=== PATIENT | male | born 1945 | race Caucasian/White ===

== ENCOUNTER 2019-05-18 15:05 | Outpatient (CLI) | payer MEDICARE, OTHER, SELFPAY ==
--- NOTE | ~2019-05-18 | XR_ITS ---
XR lumbar spine 2-3V 05/18/2019 15:35 Indication: Low back pain. Arthritis. Procedure: 2 views lumbar spine Comparison: 09/30/2017 Findings: Vertebral bodies are maintained. No acute fracture or traumatic malalignment. There is mode rate mid and lower lumbar facet hypertrophy. There is significant loss of disc height at L5-S1 with v acuum phenomenon. There is atherosclerosis. Pedicles intact. There is atherosclerosis. Impression: 1: Moderate lumbar spondylosis without significant interval change. Reviewed, dictated and finalized at location B. [employer]ATION [employer]ENT Impression: 1: Moderate lumbar spondylosis without significant interval change.
== END 2019-05-18 15:06 | disposition home or self-care (01) ==
LOC: ANHIMG 15:13
PROVIDERS: PCP Physician Assistant; Visit Provider Physician Assistant
DX: M47.896 Other spondylosis, lumbar region (principal)
CPT/HCPCS: 72100

== ENCOUNTER 2019-08-02 11:46 | Outpatient (CLI) | payer MEDICARE, OTHER, SELFPAY ==
--- NOTE | ~2019-08-02 | XR_ITS ---
EXAMINATION: XR shoulder LT min 2V INDICATION: Left shoulder pain TECHNIQUE: Four views of the left shoulder are submitted. COMPARISON: None FINDINGS: Normal alignment. No fracture. There is mild osteoarthritis in the glenohumeral and acromio clavicular joints. Soft tissues are unremarkable. IMPRESSION: Mild osteoarthritis without acute abnormality. Reviewed, dictated and finalized at location A.
== END 2019-08-02 11:47 | disposition home or self-care (01) ==
LOC: ANHIMG 11:53
PROVIDERS: PCP Physician Assistant; Visit Provider Physician Assistant
DX: M19.012 Primary osteoarthritis, left shoulder (principal)
CPT/HCPCS: 73030

== ENCOUNTER 2021-08-27 07:42 | Outpatient (CLI) | payer MEDICARE, OTHER, SELFPAY ==
--- NOTE | 2021-09-18 14:44 | WPDSLEEPSTUD ---
Sleep Study Date of Study: 08/27/21 Ordering Provider: Mayank Enamorado MD Interpreting Physician: Rabia Brooks DO Sleep Study Type: Split Polysomnogram Height: 1.75 m Weight: 83.915 kg Body Mass Index: 27.3 Neck Circumference (inches): 17.5 [place]: 3 Reason for Sleep Study Loud snoring Sleep History The patient is a 76-year-old male with atrial fibrillation, hypertension and history of tobacco use that had a sleep study ordered by his travel money advisor for evaluation of sleep apnea. The patient frequently snores loud enough that others complain. He denies having trouble sleeping when he has a cold. He denies waking up gasping for air throughout the night. He denies having breathing problems at night observed by himself or others. He denies sweating excessively at night. He denies having heart palpitations or irregular heartbeats during the night. He occasionally falls asleep during the day but never while driving. he denies sleep paralysis, cataplexy and hypnagogic / hypnopompic hallucinations. He denies having trouble at school or work due to sleepiness. He occasionally remembers his dreams. He rarely has thoughts racing through his mind. He rarely feels sad or depressed. He denies having anxiety. He denies noticing parts of his body jerk. He denies kicking during the night. He denies having crawling and aching feelings in his legs as well as leg pain during the night. He denies grinding his teeth during sleep awakening with morning jaw pain. He is frequently bothered by pain during the day but never awakened by pain during the night. He occasionally wakes up feeling stiff in the morning. He occasionally wakes up with sore or achy muscles. He denies waking up with pain in the neck, spine and other joints. He goes to bed between 830-930 a.m. on weekdays and between 930 to 10:00 a.m. on the weekends. It takes him 20 minutes to fall asleep. He is unsure how many times he wakes up per night and does not have a set wake-up time. He typically gets 6-8 hours of sleep per night. He currently lives with his . He does not consume any caffeinated beverages within 2 hours of bedtime. He does not engage in physical exercise before bedtime. He denies reading or watching television before falling asleep. He denies taking naps in the afternoon or the evening. He drinks 2 caffeinated beverages per day. He quit smoking in 1974. He denies alcohol and recreational drug use. [facility] Past Medical History Medical History Atrial fibrillation, chronic Hypertension Family History Family History Father Nicotine dependence Sibling Hypertension Social History Social History Smoking packs per day: 1 Smoking cigarettes per day: 20.0 Years smoked: 15 Smoking pack-years: 15.00 Smoking status: Former smoker Tobacco type: cigarettes and pipe Second hand tobacco smoke exposure: Yes Smoking end date: 03/14/74 Alcohol intake: current Alcohol use details: Socially Medications Home Medications Medication Instructions Recorded Confirmed Type amitriptyline 50 mg tablet 50 mg PO QHS 08/05/21 History cetirizine 10 mg tablet 10 mg PO DAILY PRN 08/05/21 History famotidine 40 mg tablet 40 mg PO DAILY 08/05/21 History lisinopril 5 mg tablet 5 mg PO DAILY 08/05/21 History memantine 10 mg tablet 10 mg PO BID 08/05/21 History metoprolol succinate 50 mg 50 mg PO BID 08/05/21 History tablet,extended release 24 hr rivaroxaban 20 mg tablet 20 mg PO DAILY 08/05/21 History simvastatin 20 mg tablet 20 mg PO DAILY 08/05/21 History tramadol 50 mg tablet 50 mg PO BID PRN 08/05/21 History Sleep Procedure This test was performed using the [employer] multiple channel system including EOG, EEG, submental EMG, EKG, nasal and oral a
[2021-09-22 15:51] VITALS: BMI 27.3
== END 2021-08-28 05:09 | disposition home or self-care (01) ==
LOC: ANHCSM 07:42
PROVIDERS: PCP Physician Assistant; Visit Provider Internal Medicine Pulmonary Disease
DX: G47.33 Obstructive sleep apnea (adult) (pediatric) (principal); G47.10 Hypersomnia, unspecified; I48.20 Chronic atrial fibrillation, unspecified; I10 Essential (primary) hypertension; Z87.891 Personal history of nicotine dependence
CPT/HCPCS: 95810; 95811

== ENCOUNTER 2021-11-24 17:52 | Emergency (ER) | payer MEDICARE, OTHER, SELFPAY ==
--- NOTE | ~2021-11-24 | XR_ITS ---
EXAM: XR knee RT min 4V DATE: 11/24/2021 18:33 HISTORY: Pain on Outside of knee LATERAL SIDE SINCE LASTNIGHT, NKI . COMPARISON: 05/05/2018. FINDINGS: Decreased mineralization. No acute fracture or dislocation. Tiny old avulsion fracture off the fibular head versus dystrophic calcification. No lytic or blastic lesion. Mild tricompartmental osteoarthritis. No erosion or periosteal change. Soft tissues within normal limits. Small knee joint effusion. IMPRESSION: No acute osseous finding in the right knee. Reviewed, dictated and finalized at location K.
[2021-11-24 18:01] VITALS: BP 115/86; PULSE 96; RESP 18; TEMP 36.5; O2SAT 99
--- NOTE | 2021-11-24 18:05 | PC.NURSE ---
patient's phone number # [phone]
--- NOTE | 2021-11-24 19:41 | PC.NURSE ---
patient complains of left knee pain that began last night at 2300. denies injury.
--- NOTE | 2021-11-24 20:16 | ED.LOWEXIN ---
HPI - Extremity Injury (Lower) General Chief Complaint: Extremity Injury, Lower Stated Complaint: right leg pain Time Seen by Provider: 11/24/21 19:56 History of Present Illness HPI Narrative: This is a 76-year-old male with past medical history of A. fib on Xarelto, who presents emergency department complaining of right knee pain. He states pain began yesterday while walking, is described as sharp, initially 4/10, now 1/10, isolated to the lateral side of the knee, aggravated by some movements but not all and does not radiate. He denies falls, trauma of the knee, swelling, fevers or chills. Related Data Home Medications Medication Instructions Recorded Confirmed amitriptyline 50 mg tablet 50 mg PO QHS 08/05/21 cetirizine 10 mg tablet 10 mg PO DAILY PRN 08/05/21 famotidine 40 mg tablet 40 mg PO DAILY 08/05/21 lisinopril 5 mg tablet 5 mg PO DAILY 08/05/21 memantine 10 mg tablet 10 mg PO BID 08/05/21 metoprolol succinate 50 mg 50 mg PO BID 08/05/21 tablet,extended release 24 hr rivaroxaban 20 mg tablet 20 mg PO DAILY 08/05/21 simvastatin 20 mg tablet 20 mg PO DAILY 08/05/21 tramadol 50 mg tablet 50 mg PO BID PRN 08/05/21 Allergies Allergy/AdvReac Type Severity Reaction Status Date / Time No Known Allergies Allergy Unknown Unverified 11/24/21 20:02 Review of Systems Review of Systems: CONSTITUTIONAL: Denies fever, chills, or sweats. CARDIOVASCULAR: Denies chest pain, palpitations, or edema. RESPIRATORY: Denies cough or dyspnea. GASTROINTESTINAL: Denies abdominal pain, nausea, vomiting, or diarrhea. GENITOURINARY: Denies dysuria or hematuria. SKIN: Denies rash or itching. MUSCULOSKELETAL: joint pain Denies back pain, or myalgia. NEUROLOGIC: Denies headache, numbness, dizziness, or weakness. PSYCHIATRIC: Denies anxiety or depression. [facility] Past Medical History Medical History Atrial fibrillation, chronic Hypertension Family History Family History Father Nicotine dependence Sibling Hypertension Social History Social History Smoking packs per day: 1 Smoking cigarettes per day: 20.0 Years smoked: 15 Smoking pack-years: 15.00 Smoking status: Former smoker Tobacco type: cigarettes and pipe Second hand tobacco smoke exposure: Yes Smoking end date: 03/14/74 Alcohol intake: current Alcohol use details: Socially Exam Narrative: GENERAL: Well-developed, well-nourished, and in no acute distress. HEAD: Normocephalic, atraumatic. EYES: PERRLA and EOMI. ENT: Nares clear, no rhinorrhea or epistaxis. Mucous membranes moist. Oropharynx without tonsillar hypertrophy exudate or other lesions. CHEST: Clear to auscultation. No respiratory distress. No wheezes rales or rhonchi HEART: Regular rate and rhythm. No murmur heard. Normal peripheral pulses. ABDOMEN: Soft, nontender, nondistended, normal active bowel sounds. EXTREMITIES: No deformity, rash, swelling or ecchymosis noted of either knee, normal range of motion of the knees with small amount of tenderness on flexion to approximately 100 degrees, anterior and posterior drawer test negative, no joint laxity noted, no edema. SKIN: Warm, dry, no rash. NEURO: No focal deficits. Alert and oriented x3. PSYCH: Normal mood and affect. Course Course Emergency Course: 20:15 -x-ray negative for fracture or dislocation. Small effusion noted on imaging not immediately obvious on examination. At this time I do not suspect significant ligament injury. Discussed findings the patient and recommendations for RICE as well as lidocaine patches and pain control. Discussed return emergency precautions including signs/symptoms of septic arthritis. The patient voiced understanding is comfortable with the plan. All questions answered to his satisfaction. Vital Signs Vital signs: Stacie
== END 2021-11-24 20:40 | disposition home or self-care (01) ==
PROVIDERS: Emergency Provider Preventive Medicine Aerospace Medicine; PCP Physician Assistant
DX: S86.911A Strain of unspecified muscle(s) and tendon(s) at lower leg level, right leg, initial encounter (principal); X58.XXXA Exposure to other specified factors, initial encounter; I48.20 Chronic atrial fibrillation, unspecified; I10 Essential (primary) hypertension; Z79.01 Long term (current) use of anticoagulants; Z87.891 Personal history of nicotine dependence
CPT/HCPCS: 73564; 99283

== ENCOUNTER 2022-06-10 12:36 | Outpatient (CLI) | payer MEDICARE, OTHER, SELFPAY ==
--- NOTE | ~2022-06-10 | XR_ITS ---
XR knee RT 3V DATE: 06/10/2022 13:05 INDICATION: Generalized right knee pain for 3 years TECHNIQUE: AP, lateral, sunrise views COMPARISON: 11/24/2021 right knee FINDINGS: Mild superior pole patellar enthesopathy at the quadriceps tendon insertion. There is slight periarticular spurring of the patella. Medial and lateral compartment joint spaces ar e well preserved. Small chronic calcification adjacent to the lateral aspect of the head of the fibula. No fracture or dislocation or joint effusion. No radiopaque intra-articular loose body or, calcinosis . No periosteal reaction or bone destruction. IMPRESSION: Minimal patellofemoral osteoarthritis Reviewed, dictated and finalized at location L.
--- NOTE | ~2022-06-10 | XR_ITS ---
XR knee LT 3V DATE: 06/10/2022 13:05 INDICATION: Generalized left knee pain for years TECHNIQUE: AP, lateral, sunrise views COMPARISON: May 05, 2017 left knee FINDINGS: Chronic mild superior pole patellar enthesopathy at the quadriceps tendon insertion site. Slight periarticular spurring of the patella. Medial and lateral compartment joint spaces are well pr eserved. No fracture or dislocation or joint effusion. No periosteal reaction or bone destruction. No radiopaq ue intra-articular loose body or chondrocalcinosis. IMPRESSION: Slight patellofemoral osteoarthritis Reviewed, dictated and finalized at location L.
== END 2022-06-10 12:37 | disposition home or self-care (01) ==
PROVIDERS: PCP Family Medicine; Visit Provider Physician Assistant
DX: M25.561 Pain in right knee (principal); M25.562 Pain in left knee; M17.0 Bilateral primary osteoarthritis of knee
CPT/HCPCS: 73562

== ENCOUNTER 2022-08-25 13:45 | Emergency (ER) | payer MEDICARE, OTHER, SELFPAY ==
[2022-08-26 06:39] LABS: Basophils Percent Auto 0.5 % (0.2-1.2); Eosinophils Absolute Auto 0.2 K/mm3 (0-0.3); Eosinophils Percent Auto 3.6 % (0-4.4); Hematocrit 47.9 % (42.0-52.0); Hemoglobin 15.6 g/dL (14.0-18.0); Immature Granulocyte Absolute 0.03 K/mm3 (0.00-0.031); Immature Granulocyte Percent A 0.5 % (0-0.5); Lymphocytes Absolute Auto 1.95 K/mm3 (0.9-3.2); Lymphocytes Percent Auto 30.2 % (18.3-44.2); Mean Corpuscular HGB Conc 32.6 g/dl (32-36); Mean Corpuscular Hemoglobin 30.6 pg (26-34); Mean Corpuscular Volume 93.9 fl (80-100); Mean Platelet Volume 11.8 fl (7.4-10.4); Monocytes Absolute Auto 0.6 K/mm3 (0.1-0.6); Monocytes Percent Auto 9.4 % (2.6-8.5); Neutrophils Absolute Auto 3.6 K/mm3 (1.3-6.7); Neutrophils Percent Auto 55.8 % (45.5-73.1); Platelet Count Result 168 k/mm3 (150-375); Red Cell Distribution Width 11.9 % (11.5-14.5); White Blood Count 6.5 K/mm3 (4.5-10.0)
[2022-08-26 06:40] LABS: Anion Gap 8 mmol/L (8-16); Carbon Dioxide 26 mmol/L (22-30); Chloride 104 mmol/L (98-107); Potassium 4.3 mmol/L (3.4-5.0); Sodium 138 mmol/L (137-145)
[2022-08-26 06:41] LABS: Alanine Aminotransferase 24 U/L (6-50); Albumin Level 4.2 g/dL (3.5-5.1); Alkaline Phosphatase 62 U/L (38-126); Aspartate Amino Transferase 27 U/L (17-59); Bilirubin,Total 0.5 mg/dL (0.2-1.3); Blood Urea Nitrogen 16 mg/dL (9-20); Calcium 8.4 mg/dL (8.4-10.2); Estimated Glomerular Filt Rate > 60; Glucose 153 mg/dL (65-110); Total Protein 7.3 g/dL (6.3-8.2); Troponin I < 0.012 ng/mL (0.000-0.034)
[2022-08-26 07:08] LABS: INR 1.8; Partial Thromboplastin Time 44.9 SECONDS (22.3-36.8); Prothrombin Time 21.9 Seconds (11.1-14.7)
== END 2022-08-25 20:00 | disposition home or self-care (01) ==
PROVIDERS: Emergency Provider Emergency Medicine; PCP Physician Assistant
DX: R55 Syncope and collapse (principal); I48.91 Unspecified atrial fibrillation; Z79.01 Long term (current) use of anticoagulants
CPT/HCPCS: 36415; 80053; 84484; 85025; 85610; 85730; 99284; J7120

== ENCOUNTER 2022-11-14 20:32 | Emergency (ER) | payer MEDICARE, OTHER, SELFPAY ==
[2022-11-14 20:39] VITALS: BP 128/51; PULSE 63; RESP 18; TEMP 36.6; O2SAT 98
[2022-11-15 00:22] VITALS: BP 131/79; PULSE 55; RESP 20; O2SAT 98
--- NOTE | 2022-11-15 01:36 | ED.GENADULT ---
HPI - General Adult General Chief complaint: Extremity Problem,Nontraumatic Stated complaint: L leg pain Time Seen by Provider: 11/15/22 00:34 History of Present Illness HPI narrative: This is a 69-year-old gentleman presenting with chief complaint of left leg pain. Patient said the pain started 2 weeks ago. The pain starts in his left glute and radiates down the side of his left leg. It is worse with standing and moving. It is better when he lays down. He has been taking tramadol with provide some relief but he is still in significant pain. Patient denies weakness to the leg. No urinary retention, bowel incontinence, fevers history of IV drug abuse or cancer. No trauma. Related Data Allergies Allergy/AdvReac Type Severity Reaction Status Date / Time No Known Allergies Allergy Unknown Verified 11/14/22 20:34 [facility] Past Medical History Medical History Allergic rhinitis Atrial fibrillation, chronic GERD (gastroesophageal reflux disease) Hypertension Osteoarthritis Post herpetic neuralgia Pure hypercholesterolemia, unspecified Unspecified dementia, unspecified severity, without behavioral disturbance, psychotic disturbance, mood disturbance, and anxiety Vitamin D deficiency Surgical History Surgical History History of cataract extraction bilaterally 06/2012 History of hernia repair Family History Family History Father Nicotine dependence Sibling Hypertension Social History Social History Smoking packs per day: 1 Smoking cigarettes per day: 20.0 Years smoked: 15 Smoking pack-years: 15.00 Smoking status: Former smoker Tobacco type: cigarettes and pipe Second hand tobacco smoke exposure: Yes Smoking end date: 03/14/74 Alcohol intake: current Alcohol use details: Socially Substance use: never Lack of Transportation: No Lack of Food: Never True Current Housing: I Have Housing Concerned About Future Housing: No Difficulty Paying Gas/Electric Bills: No Difficulty Paying for Meds: No Currently Unemployed: No Education: Trade/Vocational Certificate Difficulty w/ Childcare or Family Care: No Living arrangements: with family Occupation/Education: occupation Gender identity (if verbalized by the patient): Male Sexual Orientation (if Verbalized by the Patient): Straight or Heterosexual Exam Narrative: APPEARANCE: No apparent distress. Head: atraumatic. EYES: EOMI, NOSE: Atraumatic back: No midline tenderness RESPIRATORY: No increased rate of breathing CARDIOVASCULAR: RRR, ABDOMINAL: Non-distended MUSCULOSKELETAl: N no tenderness in the paralumbar muscles. No tenderness palpation over the glutes or thighs. Straight leg is negative bilaterally. Pulses are +2 and cap refills less than 2 seconds. Patient NEURO: Alert. Moving 4/4 extremities SKIN:: Warm, dry. Normal color PSYCHIATRIC: Normal affect Course Vital Signs Vital signs: Vital Signs Temperature 97.8 F 11/14/22 20:39 Pulse Rate 63 11/14/22 20:39 Respiratory Rate 18 11/14/22 20:39 Blood Pressure 128/51 L 11/14/22 20:39 Pulse Oximetry 98 11/14/22 20:39 Oxygen Delivery Room Air 11/14/22 20:39 Temperature 97.8 F 11/14/22 20:39 Pulse Rate 55 L 11/15/22 00:22 Respiratory Rate 20 11/15/22 00:22 Blood Pressure 131/79 11/15/22 00:22 Pulse Oximetry 98 11/15/22 00:22 Oxygen Delivery Room Air 11/14/22 20:39 Medical Decision Making MDM Narrative Medical decision making narrative: -Course: 77-year-old male presenting with left leg pain. History and physical are consistent with L5 sciatica. Patient was treated at with improvement symptoms. No concerning neurologic findings to indicate imaging is necessary. Patient has o
[2022-11-15] MEDS: HYDROcodone/acetaminophen (*CRX) 5-325 MG TABLET 2 TAB PO (01:41)
[2022-11-15] MEDS: methocarbamoL 750 MG TABLET 1500 MG PO (01:42)
[2022-11-15] MEDS: LIDOCAINE 5% PATCH 1 PATCH TRANSDERM (01:42)
[2022-11-15 01:43] VITALS: BP 113/97; PULSE 71; RESP 20; O2SAT 99
== END 2022-11-15 02:50 | disposition home or self-care (01) ==
PROVIDERS: Emergency Provider Emergency Medicine; PCP Physician Assistant
DX: M54.32 Sciatica, left side (principal); F03.90 Unspecified dementia, unspecified severity, without behavioral disturbance, psychotic disturbance, mood disturbance, and anxiety; I48.20 Chronic atrial fibrillation, unspecified; E78.00 Pure hypercholesterolemia, unspecified; E55.9 Vitamin D deficiency, unspecified; K21.9 Gastro-esophageal reflux disease without esophagitis; M19.90 Unspecified osteoarthritis, unspecified site; Z98.42 Cataract extraction status, left eye; Z98.41 Cataract extraction status, right eye; Z87.891 Personal history of nicotine dependence
CPT/HCPCS: 99283; A9270

== ENCOUNTER 2022-12-11 20:12 | Emergency (ER) | payer MEDICARE, OTHER, SELFPAY ==
[2022-12-11 20:31] VITALS: BP 151/95; PULSE 88; RESP 20; TEMP 36.6; O2SAT 99
[2022-12-11 20:49] LABS: Basophils Percent Auto 0.4 % (0.2-1.2); Eosinophils Absolute Auto 0.2 K/mm3 (0-0.3); Eosinophils Percent Auto 2.5 % (0-4.4); Hematocrit 46.5 % (42.0-52.0); Hemoglobin 14.8 g/dL (14.0-18.0); Immature Granulocyte Absolute 0.03 K/mm3 (0.00-0.031); Immature Granulocyte Percent A 0.4 % (0-0.5); Lymphocytes Absolute Auto 1.66 K/mm3 (0.9-3.2); Lymphocytes Percent Auto 24.4 % (18.3-44.2); Mean Corpuscular HGB Conc 31.8 g/dl (32-36); Mean Corpuscular Hemoglobin 30.7 pg (26-34); Mean Corpuscular Volume 96.5 fl (80-100); Mean Platelet Volume 10.9 fl (7.4-10.4); Monocytes Absolute Auto 0.6 K/mm3 (0.1-0.6); Monocytes Percent Auto 8.1 % (2.6-8.5); Neutrophils Absolute Auto 4.4 K/mm3 (1.3-6.7); Neutrophils Percent Auto 64.2 % (45.5-73.1); Platelet Count Result 155 k/mm3 (150-375); Red Blood Count 4.82 M/mm3 (4.6-6.20); Red Cell Distribution Width 12.6 % (11.5-14.5); White Blood Count 6.8 K/mm3 (4.5-10.0)
[2022-12-11 20:57] LABS: INR 1.6; Prothrombin Time 20.4 Seconds (11.1-14.7)
[2022-12-11 20:59] LABS: Partial Thromboplastin Time 40.3 SECONDS (22.3-36.8)
[2022-12-11 21:05] LABS: Alanine Aminotransferase 25 U/L (6-50); Albumin Level 4.2 g/dL (3.5-5.1); Alkaline Phosphatase 52 U/L (38-126); Anion Gap 7 mmol/L (8-16); Aspartate Amino Transferase 28 U/L (17-59); Bilirubin,Total 0.8 mg/dL (0.2-1.3); Blood Urea Nitrogen 14 mg/dL (9-20); Carbon Dioxide 30 mmol/L (22-30); Chloride 103 mmol/L (98-107); Estimated CRCL calculation 49 ml/min; Estimated Glomerular Filt Rate > 60; Glucose 112 mg/dL (65-110); Potassium 4.3 mmol/L (3.4-5.0); Sodium 140 mmol/L (137-145)
--- NOTE | 2022-12-11 23:33 | ED.GIBLEED ---
HPI - GI Bleed General Chief complaint: GI Bleed Stated complaint: GI bleed Time Seen by Provider: 12/11/22 23:17 History of Present Illness HPI Narrative: This is a 77-year-old male, with past history of A-fib on Xarelto, hemorrhoids status post hemorrhoidectomy, who presents emergency department with blood in stool. The patient notes over the past week, he has had dark appearing stools. 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 He complains of some chronic intermittent lightheadedness that does not seem to have worsened. He denies chest pain or shortness of breath. He denies bleeding from elsewhere. Related Data Allergies Allergy/AdvReac Type Severity Reaction Status Date / Time No Known Allergies Allergy Unknown Verified 12/11/22 23:58 Review of Systems Review of Systems: CONSTITUTIONAL: Denies fever, chills, or sweats. CARDIOVASCULAR: Denies chest pain, palpitations, or edema. RESPIRATORY: Denies cough or dyspnea. GASTROINTESTINAL: Dark red blood in stool denies abdominal pain, nausea, vomiting, or diarrhea. GENITOURINARY: Denies dysuria or hematuria. SKIN: Denies rash or itching. MUSCULOSKELETAL: Denies back pain, joint pain, or myalgia. NEUROLOGIC: Denies headache, numbness, dizziness, or weakness. PSYCHIATRIC: Denies anxiety or depression. [facility] Past Medical History Medical History Allergic rhinitis Atrial fibrillation, chronic GERD (gastroesophageal reflux disease) Hypertension Osteoarthritis Post herpetic neuralgia Pure hypercholesterolemia, unspecified Unspecified dementia, unspecified severity, without behavioral disturbance, psychotic disturbance, mood disturbance, and anxiety Vitamin D deficiency Surgical History Surgical History History of cataract extraction bilaterally 06/2012 History of hernia repair Family History Family History Father Nicotine dependence Sibling Hypertension Social History Social History Smoking packs per day: 1 Smoking cigarettes per day: 20.0 Years smoked: 15 Smoking pack-years: 15.00 Smoking status: Former smoker Tobacco type: cigarettes and pipe Second hand tobacco smoke exposure: Yes Smoking end date: 03/14/74 Alcohol intake: current Alcohol use details: Socially Substance use: never Lack of Transportation: No Lack of Food: Never True Current Housing: I Have Housing Concerned About Future Housing: No Difficulty Paying Gas/Electric Bills: No Difficulty Paying for Meds: No Currently Unemployed: No Education: Trade/Vocational Certificate Difficulty w/ Childcare or Family Care: No Living arrangements: with family Occupation/Education: occupation Gender identity (if verbalized by the patient): Male Sexual Orientation (if Verbalized by the Patient): Straight or Heterosexual Exam Narrative: GENERAL: Well-developed, well-nourished, and in no acute distress. HEAD: Normocephalic, atraumatic. EYES: PERRLA and EOMI. ENT: Nares clear, no rhinorrhea or epistaxis. Mucous membranes moist. Oropharynx without tonsillar hypertrophy exudate or other lesions. Mild conjunctiva pallor CHEST: Clear to auscultation. No respiratory distress. No wheezes rales or rhonchi HEART: Regular rate and rhythm. No murmur heard. Normal peripheral pulses. ABDOMEN: Soft, nontender, nondistended, normal active bowel sounds. RECTAL: No noted external hemorrhoids. There is no active bleeding noted. No palpable mass on digital rectal exam. There is pink-tinged stool without obvious blood EXTREMITIES: Normal range of motion. No edema. SKIN: Warm, dry, no rash. NEURO: Alert and oriented x3. Moving all 4 limbs purposefully. PSYCH: Normal mood and affect. Course Course Emergency Course: 2
[2022-12-11 23:44] LABS: Basophils Percent Auto 0.4 % (0.2-1.2); Eosinophils Absolute Auto 0.1 K/mm3 (0-0.3); Eosinophils Percent Auto 1.5 % (0-4.4); Hemoglobin 14.5 g/dL (14.0-18.0); Immature Granulocyte Absolute 0.04 K/mm3 (0.00-0.031); Immature Granulocyte Percent A 0.4 % (0-0.5); Lymphocytes Absolute Auto 1.71 K/mm3 (0.9-3.2); Lymphocytes Percent Auto 17.8 % (18.3-44.2); Mean Corpuscular HGB Conc 32.2 g/dl (32-36); Mean Corpuscular Hemoglobin 30.8 pg (26-34); Mean Corpuscular Volume 95.5 fl (80-100); Mean Platelet Volume 11.2 fl (7.4-10.4); Monocytes Absolute Auto 0.7 K/mm3 (0.1-0.6); Neutrophils Percent Auto 72.9 % (45.5-73.1); Platelet Count Result 152 k/mm3 (150-375); Red Blood Count 4.71 M/mm3 (4.6-6.20); Red Cell Distribution Width 12.5 % (11.5-14.5); White Blood Count 9.6 K/mm3 (4.5-10.0)
[2022-12-11 23:53] VITALS: BP 132/73; PULSE 74; RESP 17; O2SAT 100
[2022-12-11 23:56] VITALS: PULSE 77; RESP 16
[2022-12-11 23:58] VITALS: BP 132/73; PULSE 71; RESP 16; O2SAT 100
[2022-12-12] VITALS: PULSE 71; RESP 12
[2022-12-12 00:15] VITALS: PULSE 68; RESP 17; O2SAT 99
== END 2022-12-12 01:25 | disposition home or self-care (01) ==
PROVIDERS: Emergency Provider Preventive Medicine Aerospace Medicine; PCP Physician Assistant
DX: K92.1 Melena (principal); F03.90 Unspecified dementia, unspecified severity, without behavioral disturbance, psychotic disturbance, mood disturbance, and anxiety; I48.20 Chronic atrial fibrillation, unspecified; I10 Essential (primary) hypertension; E78.00 Pure hypercholesterolemia, unspecified; E55.9 Vitamin D deficiency, unspecified; K21.9 Gastro-esophageal reflux disease without esophagitis; M19.90 Unspecified osteoarthritis, unspecified site; Z87.891 Personal history of nicotine dependence; Z79.01 Long term (current) use of anticoagulants; Z98.42 Cataract extraction status, left eye; Z98.41 Cataract extraction status, right eye
CPT/HCPCS: 36415; 80053; 85025; 85610; 85730; 86850; 86900; 86901; 99283

== ENCOUNTER 2023-02-01 00:06 | Day surgery (SDC) | payer MEDICARE, OTHER, SELFPAY ==
[2023-01-26 14:56] VITALS: BMI 28.8
--- NOTE | 2023-01-28 14:17 | SUR.PREOP ---
Patient called regarding upcoming procedure. Reviewed preop instructions, appointment times, and procedure prep.
[2023-02-01 08:41] VITALS: BP 123/94; PULSE 105; RESP 18; TEMP 36.3; O2SAT 98; BMI 27.1
--- NOTE | 2023-02-01 08:52 | PM.HPGS ---
History of Present Illness History of Present Illness Consent: Risks, benefits, and alternatives have been discussed and questions answered. Patient agrees to proceed with procedure. Chief complaint: rectal bleeding, Neoplasia screening. Narrative: Alvin Rosa is a 77 year old male Presents for colonoscopy. Patient has noticed occasional bright red blood per rectum. He denies abdominal or rectal pain. Family history noncontributory. Previous colonoscopy 13 years ago. Patient does take Xarelto because of atrial fibrillation. Review of Systems Review of Systems: Review of systems noncontributory. [facility] Past Medical History Medical History (Updated 02/01/23 @ 08:53 by Yosef Stroud MD) Allergic rhinitis Atrial fibrillation, chronic GERD (gastroesophageal reflux disease) Hypertension Osteoarthritis Post herpetic neuralgia Pure hypercholesterolemia, unspecified Unspecified dementia, unspecified severity, without behavioral disturbance, psychotic disturbance, mood disturbance, and anxiety Vitamin D deficiency Surgical History Surgical History History of cataract extraction bilaterally 06/2012 History of hemorrhoidectomy History of hernia repair Family History Family History Father Nicotine dependence Tobacco abuse Cerebrovascular accident Sibling Hypertension Dementia Mother , CHF Arthritis Sibling , 57-didn't take his BP medications. Acute myocardial infarction Social History Social History Smoking packs per day: 0.5 Smoking cigarettes per day: 10.0 Years smoked: 15 Smoking pack-years: 7.50 Smoking status: Former smoker Tobacco type: cigarettes Smokeless tobacco user: snuff Second hand tobacco smoke exposure: Yes Smoking end date: 03/14/74 Additional smoking assessment comments: SNUFF FOR A FEW YEARS, Alcohol intake: current Alcohol use details: Socially Substance use: never Substance use type: does not use Lack of Transportation: No Lack of Food: Never True Current Housing: I Have Housing Concerned About Future Housing: No Difficulty Paying Gas/Electric Bills: No Difficulty Paying for Meds: No Currently Unemployed: No Education: High School Diploma/GED Difficulty w/ Childcare or Family Care: No Living arrangements: with family Occupation/Education: occupation 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 Gender identity (if verbalized by the patient): Male Sexual Orientation (if Verbalized by the Patient): Straight or Heterosexual Spiritual care concerns: No Meds Home Medications and Allergies Home Medications Medication Instructions Recorded Confirmed Type amitriptyline 50 mg tablet 50 mg PO QHS 90 days #90 tabs 10/01/22 01/26/23 Rx famotidine 40 mg tablet 40 mg PO DAILY 90 days #90 tabs 10/01/22 01/26/23 Rx lisinopril 5 mg tablet 5 mg PO DAILY 90 days #90 tabs 10/01/22 01/26/23 Rx memantine 10 mg tablet 10 mg PO BID 90 days #180 tabs 10/01/22 01/26/23 Rx rivaroxaban 20 mg tablet 20 mg PO DAILY 90 days #90 tabs 10/01/22 01/26/23 Rx simvastatin 20 mg tablet 20 mg PO DAILY 90 days #90 tabs 10/01/22 01/26/23 Rx sodium,potassium,mag sulfates 17.5 See Rx Instructions PO .COMPLEX 01/17/23 01/26/23 Rx gram-3.13 gram-1.6 gram oral soln #354 mL (Suprep Bowel Prep Kit) acetaminophen 500 mg tablet 1,000 mg PO TID PRN Pain 01/26/23 01/26/23 History cetirizine 10 mg tablet 10 mg PO DAILY allergy symptoms 01/26/23 01/26/23 History ergocalciferol (vitamin D2) 1,250 1,250 mcg PO WEEKLY 01/26/23 01/26/23 History mcg (50,000 unit) capsule (Vitamin D2) lidocaine 5 % topical patch 1 patch topical DAILY PRN Pain 01/26/23 01/26/23 History metoprolol tartrate 50 mg tablet 50 mg PO BID 01/26/23 01/26/23 History tramado
[2023-02-01] MEDS: LACTATED RINGERS 1,000 ML 150 ML IV CONT (09:03)
--- NOTE | 2023-02-01 09:26 | WPDANESEPPF ---
Anes - Initial Pre Proc Eval Procedure: Operation Date: 02/01/23 10:00 Proposed Procedures p Colonoscopy - Yosef Stroud MD Date/Time: 02/01/23 09:26 Surgeon: Yosef Stroud MD Pre Op Diagnosis: rectal bleeding, Neoplasia screening. Patient Data Age: 77 Gender: M Height: 1.75 m Weight: 83.3 kg Last Vital Signs Temp 97.4 F L 02/01/23 08:41 Pulse 105 H 02/01/23 08:41 Resp 18 02/01/23 08:41 BP 123/94 H 02/01/23 08:41 Pulse Ox 98 02/01/23 08:41 O2 Del Method Room Air 02/01/23 08:41 Allergies Allergy/AdvReac Type Severity Reaction Status Date / Time No Known Allergies Allergy Unknown Verified 01/26/23 14:57 Home Medications Medication Instructions Recorded Confirmed Type amitriptyline 50 mg tablet 50 mg PO QHS 90 days #90 tabs 10/01/22 01/26/23 Rx famotidine 40 mg tablet 40 mg PO DAILY 90 days #90 tabs 10/01/22 01/26/23 Rx lisinopril 5 mg tablet 5 mg PO DAILY 90 days #90 tabs 10/01/22 01/26/23 Rx memantine 10 mg tablet 10 mg PO BID 90 days #180 tabs 10/01/22 01/26/23 Rx rivaroxaban 20 mg tablet 20 mg PO DAILY 90 days #90 tabs 10/01/22 01/26/23 Rx simvastatin 20 mg tablet 20 mg PO DAILY 90 days #90 tabs 10/01/22 01/26/23 Rx sodium,potassium,mag sulfates 17.5 See Rx Instructions PO .COMPLEX 01/17/23 01/26/23 Rx gram-3.13 gram-1.6 gram oral soln #354 mL (Suprep Bowel Prep Kit) acetaminophen 500 mg tablet 1,000 mg PO TID PRN Pain 01/26/23 01/26/23 History cetirizine 10 mg tablet 10 mg PO DAILY allergy symptoms 01/26/23 01/26/23 History ergocalciferol (vitamin D2) 1,250 1,250 mcg PO WEEKLY 01/26/23 01/26/23 History mcg (50,000 unit) capsule (Vitamin D2) lidocaine 5 % topical patch 1 patch topical DAILY PRN Pain 01/26/23 01/26/23 History metoprolol tartrate 50 mg tablet 50 mg PO BID 01/26/23 01/26/23 History tramadol 50 mg tablet 50 mg PO BID pain 01/26/23 01/26/23 History Patient hx anesthesia problems: none Family hx anesthesia problems: none Results Review: All pre-operative results and documents have been reviewed as part of the pre-operative evaluation. [facility] Past Medical History Medical History (Updated 02/01/23 @ 08:53 by Yosef Stroud MD) Allergic rhinitis Atrial fibrillation, chronic GERD (gastroesophageal reflux disease) Hypertension Osteoarthritis Post herpetic neuralgia Pure hypercholesterolemia, unspecified Unspecified dementia, unspecified severity, without behavioral disturbance, psychotic disturbance, mood disturbance, and anxiety Vitamin D deficiency Surgical History Surgical History History of cataract extraction bilaterally 06/2012 History of hemorrhoidectomy History of hernia repair Family History Family History Father Nicotine dependence Tobacco abuse Cerebrovascular accident Sibling Hypertension Dementia Mother , CHF Arthritis Sibling , 57-didn't take his BP medications. Acute myocardial infarction Social History Social History Smoking packs per day: 0.5 Smoking cigarettes per day: 10.0 Years smoked: 15 Smoking pack-years: 7.50 Smoking status: Former smoker Tobacco type: cigarettes Smokeless tobacco user: snuff Second hand tobacco smoke exposure: Yes Smoking end date: 03/14/74 Additional smoking assessment comments: SNUFF FOR A FEW YEARS, Alcohol intake: current Alcohol use details: Socially Substance use: never Substance use type: does not use Lack of Transportation: No Lack of Food: Never True Current Housing: I Have Housing Concerned About Future Housing: No Difficulty Paying Gas/Electric Bills: No Difficulty Paying for Meds: No Currently Unemployed: No Education: High School Diploma/GED Difficulty w/ Childcare or Family Care: No Living arrangements: with family Occupatio
[2023-02-01 10:11] VITALS: BP 104/58; PULSE 77; RESP 15; O2SAT 96
[2023-02-01 10:21] VITALS: BP 103/68; PULSE 77; RESP 19; O2SAT 96
[2023-02-01 10:31] VITALS: BP 112/61; PULSE 77; RESP 19; O2SAT 100
[2023-02-01 10:41] VITALS: BP 98/76; PULSE 74; RESP 21; O2SAT 100
== END 2023-02-01 10:50 | disposition home or self-care (01) ==
PROVIDERS: PCP Family Medicine; Visit Provider Internal Medicine Gastroenterology
PROC: 0DJD8ZZ Inspection of Lower Intestinal Tract, Via Natural or Artificial Opening Endoscopic (ICD-10-PCS; CPT 45378; principal; 2023-02-01 10:00)
DX: K92.1 Melena (principal); K64.8 Other hemorrhoids; K57.30 Diverticulosis of large intestine without perforation or abscess without bleeding; I48.91 Unspecified atrial fibrillation; Z79.01 Long term (current) use of anticoagulants; I10 Essential (primary) hypertension; E55.9 Vitamin D deficiency, unspecified; F03.90 Unspecified dementia, unspecified severity, without behavioral disturbance, psychotic disturbance, mood disturbance, and anxiety; E78.00 Pure hypercholesterolemia, unspecified; Z87.891 Personal history of nicotine dependence
CPT/HCPCS: 45378; C1726; J2001; J2704; J7120

== ENCOUNTER 2023-07-07 21:50 | Emergency (ER) | payer MEDICARE, OTHER, SELFPAY ==
--- NOTE | ~2023-07-07 | XR_ITS ---
Left Shoulder Technique: AP and scapular Y views were obtained. Clinical History: Pain COMPARISON: 08/02/2019 Findings: There is elevation of the distal left clavicle with widening of the coracoclavicular distan ce as well as widening of the acromioclavicular joint itself, compatible with grade 3 AC joint separa tion. No acute osseous fracture identified. Glenohumeral joint intact. Soft tissues are unremarkable. Impression: Grade 3 AC joint separation, as detailed above. This is new since 08/02/2019. Reviewed, dictated and finalized at location M. Impression: Grade 3 AC joint separation, as detailed above. This is new since 08/02/2019.
[2023-07-07 21:53] VITALS: BP 131/100; PULSE 70; RESP 18; TEMP 36.2; O2SAT 97
[2023-07-08 00:08] VITALS: BP 153/73; PULSE 66; RESP 17; O2SAT 96
[2023-07-08 01:14] VITALS: BP 154/75; PULSE 60; RESP 18; O2SAT 96
--- NOTE | 2023-07-08 01:51 | ED.GENADULT ---
HPI - General Adult General Chief complaint: Extremity Injury, Upper Stated complaint: left shoulder injury Time Seen by Provider: 07/08/23 01:30 History of Present Illness HPI narrative: Patient is a 77-year-old male who presents to the emergency department this evening after a left shoulder injury. Patient states that he was standing on his bed trying to fix something on his fan on the when he lost balance and fell forward. Patient states that as he was falling his left shoulder hit the door frame. Patient denies hitting his head and denies any loss of consciousness. He is currently denying any additional injuries or any pain outside of his left shoulder. Patient is able to perform a limited range of motion at the left shoulder joint but limited due to pain. No additional symptoms or concerns at this time. Related Data Allergies Allergy/AdvReac Type Severity Reaction Status Date / Time No Known Allergies Allergy Unknown Verified 07/07/23 21:51 Review of Systems Review of Systems: All systems are reviewed and are negative unless stated otherwise in the HPI. [facility] Past Medical History Medical History Allergic rhinitis Atrial fibrillation, chronic GERD (gastroesophageal reflux disease) Hypertension Osteoarthritis Post herpetic neuralgia Pure hypercholesterolemia, unspecified Unspecified dementia, unspecified severity, without behavioral disturbance, psychotic disturbance, mood disturbance, and anxiety Vitamin D deficiency Surgical History Surgical History History of cataract extraction bilaterally 06/2012 History of hemorrhoidectomy History of hernia repair Family History Family History Father Nicotine dependence Tobacco abuse Cerebrovascular accident Sibling Hypertension Dementia Mother , CHF Arthritis Sibling , 57-didn't take his BP medications. Acute myocardial infarction Social History Social History Smoking packs per day: 0.5 Smoking cigarettes per day: 10.0 Years smoked: 15 Smoking pack-years: 7.50 Smoking status: Former smoker Tobacco type: cigarettes Smokeless tobacco user: snuff Second hand tobacco smoke exposure: Yes Smoking end date: 03/14/74 Additional smoking assessment comments: SNUFF FOR A FEW YEARS, Alcohol intake: current Alcohol use details: Socially Substance use: never Substance use type: does not use Do You Feel Safe in your Home?: Yes Lack of Transportation: No Lack of Food: Never True Current Housing: I Have Housing Concerned About Future Housing: No Difficulty Paying Gas/Electric Bills: No Difficulty Paying for Meds: No Currently Unemployed: No Education: High School Diploma/GED Difficulty w/ Childcare or Family Care: No Living arrangements: with family Occupation/Education: occupation 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 Gender identity (if verbalized by the patient): Male Sexual Orientation (if Verbalized by the Patient): Straight or Heterosexual Spiritual care concerns: No Exam Narrative: General: Alert, awake, afebrile, in no acute distress. HEENT: PERRL, no rhinorrhea, no post nasal drip, oropharynx clear. Neck: Trachea midline, no JVD, no lymphadenopathy. Cardiovascular: Regular rate and rhythm, no murmurs, rubs or gallops, no peripheral edema. Respiratory: Clear to auscultation bilaterally, no tachypnea, no wheezing, no rhonchi, no rubs, no respiratory distress. Abdomen: Soft, nontender, nondistended, no rebound, no guarding, no peritoneal signs. Musculoskeletal: Deformity noted along the left shoulder joint, patient does have limited but intact range of motion at the left shoulder joint, range of motion is limited due to pain
[2023-07-08] MEDS: HYDROcodone/acetaminophen (*CRX) 5-325 MG TABLET 1 TAB PO (02:32)
[2023-07-08 03:25] VITALS: BP 151/74; PULSE 78; RESP 17; O2SAT 95
[2023-07-08] MEDS: KETOROLAC 30 MG/ML VIAL (*BKC) 15 MG IM (04:27)
== END 2023-07-08 04:55 | disposition home or self-care (01) ==
PROVIDERS: Emergency Provider Emergency Medicine; PCP Family Medicine
DX: S43.102A Unspecified dislocation of left acromioclavicular joint, initial encounter (principal); F03.90 Unspecified dementia, unspecified severity, without behavioral disturbance, psychotic disturbance, mood disturbance, and anxiety; I48.20 Chronic atrial fibrillation, unspecified; I10 Essential (primary) hypertension; E78.00 Pure hypercholesterolemia, unspecified; E55.9 Vitamin D deficiency, unspecified; M19.90 Unspecified osteoarthritis, unspecified site; K21.9 Gastro-esophageal reflux disease without esophagitis; Z98.42 Cataract extraction status, left eye; Z98.41 Cataract extraction status, right eye; Z87.891 Personal history of nicotine dependence; W06.XXXA Fall from bed, initial encounter; Z79.01 Long term (current) use of anticoagulants
CPT/HCPCS: 73030; 96372; 99283; A4565; A9270; J1885

== ENCOUNTER 2023-09-22 15:30 | Outpatient (RCR) | payer MEDICARE, OTHER, SELFPAY ==
--- NOTE | 2023-08-18 13:34 | OPREHPOC ---
Outpatient Therapy Plan of Care This is a Multidisciplinary Plan of Care that may contain components documented by all disciplines (PT, OT, and ST.) PT Problem 1 PT Problem #1 Knowledge Deficit PT Goal 1 Goal [place] with HEP Target Visit 2 PT Problem 2 PT Problem #2 Impaired Range of Motion PT Goal 1 Goal Demonstrate 170 degrees of Active assisted flexion ROM for improved functional reach Target Visit 4 PT Goal 2 Goal Patient will demonstrate comfortable abduction to 140 degrees for shelf lifting and improved scapular mechanics Target Visit 4 PT Problem 3 PT Problem #3 Impaired Strength PT Goal 1 Goal Demonstrate 4+/5 strength of external rotation and abduction to improve shoulder stability with ADLs Target Visit 4 PT Problem 4 PT Problem #4 Impaired Functional Mobil PT Goal 1 Goal Patient will demonstrate ability to perform 5# overhead lift x 5 for home functional reach and lift Target Visit 4
--- NOTE | 2023-08-18 13:34 | PTOPEVAL1 ---
Assessment and note entered by Kapil Peterson, PT Evaluation Information Assessment Status Evaluation Diagnosis Left AC joint dislocation Onset Early July 2023 Subjective Information Patient fell off his bed into his wall trying to pull a chain. Reports that he is having trouble sleeping on his left shoulder and pain always comes and goes. He is not having any numbness or tingling at this time. He is having a lot of trouble reaching behind his back. 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 Reported Pain Level Pain Score 0: Self Report Assessment PT Clinical Summary Patient presents with sings and symptoms of AC joint separation. Patient has remarkably good strength in shoulder given nature of trauma and separation. Minimal ROM loss most prevelant in overhead activity. Patient will benefit from skilled therapy to address deficits as we progress through gentle ROM and strengthening for terminal superintendent active reach and stabilization. Plan of Care Interventions Manual Therapy,Neuro Re-education,Therapeutic Activities,Therapeutic Exercise PT Services Indicated Yes Treatment Frequency and 1x/week for 4 visits Duration These treatments will address the objective and functional deficits as defined above. The patient will be advanced safely and appropriately in order for the patient to progress towards his/her prior level of function. Additional exercises will be introduced and as well as a comprehensive home exercise program upon discharge, if needed, ?to ensure carryover of functional gains achieved in the clinic. This treatment plan has been reviewed and agreement upon by the patient.
[2023-09-22 15:25] VITALS: BP_SYST 140
--- NOTE | 2023-09-22 16:10 | PTOPDC ---
Assessment and note entered by Katharina Mcmahon, PT Discharge Report Assessment Status Discharge Diagnosis Left AC joint dislocation Onset Early July 2023 Subjective Information shoulder is doing better; hurts when push down on it; doing everything normally do at home; is doing OK and ready to be done with therapy; Reported Pain Level Pain Score Self Report Additional Pain Score Comments pain range in the past week 0-5/10 increase pain: lie on L side about 10 minutes; push down on L arm, like getting up decrease pain: sit, rest, tylenol; Assessment PT Clinical Summary Tavares has received 3 PT sessions. Compared to the initial evaluation: pain has decreased to 0-5/10; reports pain with pushing down on L arm;self assessment with Quick Dash from 18% to 7% limitation in activity level; increased strength and ROM of L shoulder--reports he is doing everything at home OK; active ROM of L shoulder: flexion 125. abduction 125'. Education completed for HEP and posture. The goals were partially met. Discharge PT and he is to continue with his HEP. Plan of Care PT Services Indicated No
== END 2023-09-23 10:34 | disposition home or self-care (01) ==
LOC: ANHPT 15:30
PROVIDERS: PCP Family Medicine; Visit Provider Orthopaedic Surgery
DX: S43.102D Unspecified dislocation of left acromioclavicular joint, subsequent encounter (principal)
CPT/HCPCS: 97110; 97161; 97530

== ENCOUNTER 2023-10-28 14:14 | Outpatient (CLI) | payer MEDICARE, OTHER, SELFPAY | END 2023-10-28 14:15 | disposition home or self-care (01) | LOC: ANHAUDIO 14:15 | PROVIDERS: PCP Family Medicine; Visit Provider Physician Assistant | DX: Z01.10 Encounter for examination of ears and hearing without abnormal findings (principal) | CPT/HCPCS: 92557; 92567 ==

== ENCOUNTER 2023-11-10 06:34 | Outpatient (CLI) | payer MEDICARE, OTHER, SELFPAY ==
--- NOTE | ~2023-11-10 | US_ITS ---
Procedure: Duplex Doppler examination of the bilateral carotids. Indication: Visual disturbance Technique: Real time, color-flow and pulse wave Doppler examination of the bilateral carotids was performed. Findings: Mancia scale ultrasonography of the right neck demonstrated small calcified plaques at the proximal rig ht internal carotid artery. There was demonstration of normal color-flow and Doppler waveforms within the right common, internal and external carotid arteries. The peak systolic velocities in the right common, internal and external carotid arteries were demonstrated to be 120 cm/sec, 104 cm/sec and 102 cm/sec respectively. The right ICA/CCA ratio was 0.9.The proximal right internal carotid artery demo nstrates 0% stenosis relative to the normal distal artery lumen diameter. Mancia scale sonography of the left neck demonstrated small calcified plaques at the left carotid bulb region. There was demonstration of normal color-flow and wave forms within the left common, internal and external carotid arteries. The peak systolic velocities in the left common, internal and external carotid arteries were demonstrated to be 115cm/sec, 97 cm/sec and 120 cm/sec respectively. The left ICA/CCA ratio was 0.9. The proximal left internal carotid artery demonstrates 0% stenosis relative to the normal distal artery lumen diameter. There was antegrade flow demonstrated in the bilateral vertebral arteries. Impression: No hemodynamically significant stenosis of the bilateral internal carotid arteries. Antegrade flow in the bilateral vertebral arteries. Note: The methodology used is an indirect measurement validated against a direct method (such as the NASCET criteria) that compares diameters at the stenosis to the distal ICA. Reviewed, dictated and finalized at location . Impression: No hemodynamically significant stenosis of the bilateral internal carotid arter ies. Antegrade flow in the bilateral vertebral arteries. Note: The methodology used is an indirect measurement validated against a direct meth od (such as the NASCET criteria) that compares diameters at the stenosis to the distal ICA.
--- NOTE | ~2023-11-10 | MR_ITS ---
MRI of the brain Clinical History: Visual disturbance Technique: Axial and sagittal T1-weighted images were acquired. These were followed by axial T2-weigh tomasa, diffusion weighted, gradient, and FLAIR images. Findings: There is no acute infarct, intracranial hemorrhage, or mass lesion. There are extensive chr onic white matter changes throughout the periventricular white matter. Ventricles and subarachnoid spaces are mildly dilated. Orbits are unremarkable. Paranasal sinuses and mastoid air cells are essentially clear. Major flow voids appear intact. Sagittal midline structures are intact. IMPRESSION: No acute infarct, intracranial hemorrhage, or mass lesion. Severe chronic microvascular ischemic changes in the periventricular white matter bilaterally. Reviewed, dictated and finalized at location . IMPRESSION: No acute infarct, intracranial hemorrhage, or mass lesion. Severe chronic microvascular ischemic changes in the periventricular white saray er bilaterally.
== END 2023-11-10 06:35 | disposition home or self-care (01) ==
PROVIDERS: PCP Family Medicine; Visit Provider Family Medicine
DX: I67.82 Cerebral ischemia (principal); H53.9 Unspecified visual disturbance
CPT/HCPCS: 70551; 93880